=== PATIENT | male | born 1950 | race Caucasian/White ===

== ENCOUNTER 2023-08-28 12:14 | Inpatient (IN) | payer BC ==
[~2023-08-28] VITALS: Ht 180.3 cm; Wt 79.8 kg
[2023-08-28 13:18] VITALS: BP_SYST 145; PULSE 95; RESP 18; TEMP 98.3; O2SAT 98
[2023-08-28] MEDS: ONDANSETRON HCL 4 MG/2 ML VIAL IVP ONE (15:00)
[2023-08-28] MEDS: MORPHINE 2 MG/ML INJ. SYRINGE IVP ONE (15:02)
[2023-08-28 15:59] LABS: BASOPHILS # (AUTO) 0.1 K/uL (0.0-0.2); BASOPHILS % (AUTO) 0.6 % (0.0-2.0); EOSINOPHILS % (AUTO) 0.3 % (0.0-4.0); HEMATOCRIT 39.4 % (36-54); HEMOGLOBIN 13.8 g/dL (14.0-18.0); LYMPHOCYTES # (AUTO) 1.1 K/uL (1.0-5.5); LYMPHOCYTES % (AUTO) 9.3 % (20.5-51.5); MEAN CORPUSCULAR HEMOGLOBIN 31 pg (27-31); MEAN CORPUSCULAR HGB CONC 35 % (32-36); MEAN CORPUSCULAR VOLUME 87 fL (79.0-98.0); MONOCYTES # (AUTO) 0.8 K/uL (0.0-1.0); NEUTROPHILS # (AUTO) 9.5 K/uL (1.8-7.7); NEUTROPHILS % (AUTO) 82.8 % (40.0-70.0); PLATELET COUNT (AUTO) 155 K/uL (130-430); RED CELL DISTRIBUTION WIDTH 13.4 % (9.0-15.0); WHITE BLOOD COUNT (AUTO) 11.5 K/uL (4.8-10.8)
[2023-08-28 16:07] LABS: BILIRUBIN,URINE NEGATIVE (NEGATIVE); BLOOD, URINE 2+ (NEGATIVE); COLOR,URINE YELLOW (YELLOW); GLUCOSE,URINE NEGATIVE (NEGATIVE); KETONES,URINE NEGATIVE (NEGATIVE); LEUKOCYTE ESTERASE ,URINE NEGATIVE (NEGATIVE); NITRITE, URINE NEGATIVE (NEGATIVE); PH,URINE 5.5 (5.0-8.0); PROTEIN URINE NEGATIVE (NEGATIVE); UROBILINOGEN,URINE 0.2 (0.2-1.0)
[2023-08-28 16:08] LABS: CLARITY/URINE CLOUDY (CLEAR)
[2023-08-28 16:11] LABS: ANION GAP 11 (5-15); CALCIUM 8.2 mg/dL (8.4-11.0); CARBON DIOXIDE 26 mmol/L (23-29); CHLORIDE 104 mmol/L (98-107); CREATININE 3.71 mg/dL (0.55-1.30); GLUCOSE 148 mg/dL (74-106); SODIUM SERUM 141 mmol/L (136-145); UREA NITROGEN, BLOOD 36 mg/dL (8-21)
[2023-08-28 17:04] LABS: BACTERIA,URINE FEW /HPF (None Seen); WBC,URINE 0-3 /HPF (0-3)
[2023-08-28] MEDS ORDERED: ROSU10TA29 PO (17:44)
[2023-08-28] MEDS ORDERED: HYDROcodone/ACETAMIN 10-325 MG TAB PO PRN (17:45)
[2023-08-28] MEDS ORDERED: HYDROcodone/ACETAMIN 5-325 MG TAB (NORCO/ VICODIN) PO PRN (17:45)
[2023-08-28] MEDS ORDERED: ACETAMINOPHEN 325 MG TABLET PO PRN ×2 (17:45→18:00)
[2023-08-28] MEDS ORDERED: hydrALAZINE HCL 20 MG/ML VIAL IVP PRN (17:45)
[2023-08-28] MEDS ORDERED: ONDANSETRON HCL 4 MG/2 ML VIAL IVP PRN (17:45)
[2023-08-28] MEDS ORDERED: MORPHINE 2 MG/ML INJ. SYRINGE IVP PRN (17:45)
[2023-08-28] MEDS ORDERED: ALBUTEROL SULFATE 0.083% 2.5 MG/3 ML VIAL.NEB INH PRN (17:45)
[2023-08-28] MEDS ORDERED: TRAM50TA2 PO (17:46)
[2023-08-28] MEDS ORDERED: LOSA50TA28 PO (17:46)
[2023-08-28] MEDS ORDERED: CARV6.2554 PO (17:46)
[2023-08-28] MEDS ORDERED: METF-1069 PO (17:48)
[2023-08-28] MEDS: NACL 0.9% 1,000 ML IV ONE (19:41)
[2023-08-28 22:52] VITALS: BP_SYST 132; PULSE 71; RESP 18; TEMP 98
[2023-08-28 23:42] VITALS: BP_SYST 132; PULSE 71; O2SAT 98
[2023-08-29 06:42] LABS: BASOPHILS % (AUTO) 0.5 % (0.0-2.0); EOSINOPHILS # (AUTO) 0.4 K/uL (0.0-0.4); EOSINOPHILS % (AUTO) 4.3 % (0.0-4.0); HEMATOCRIT 36.2 % (36-54); HEMOGLOBIN 12.7 g/dL (14.0-18.0); LYMPHOCYTES # (AUTO) 2.2 K/uL (1.0-5.5); LYMPHOCYTES % (AUTO) 23.3 % (20.5-51.5); MEAN CORPUSCULAR HEMOGLOBIN 31 pg (27-31); MEAN CORPUSCULAR HGB CONC 35 % (32-36); MEAN CORPUSCULAR VOLUME 88 fL (79.0-98.0); MONOCYTES # (AUTO) 0.9 K/uL (0.0-1.0); MONOCYTES % (AUTO) 9.7 % (1.7-9.3); NEUTROPHILS # (AUTO) 5.7 K/uL (1.8-7.7); NEUTROPHILS % (AUTO) 62.2 % (40.0-70.0); PLATELET COUNT (AUTO) 156 K/uL (130-430); RED CELL DISTRIBUTION WIDTH 13.2 % (9.0-15.0); WHITE BLOOD COUNT (AUTO) 9.2 K/uL (4.8-10.8)
[2023-08-29 07:38] LABS: ALANINE AMINOTRANSFERASE 16 U/L (12-78); ALBUMIN 2.9 g/dL (3.4-4.8); ANION GAP 8 (5-15); ASPARTATE AMINOTRANSFERASE 15 U/L (10-37); CALCIUM 7.8 mg/dL (8.4-11.0); CARBON DIOXIDE 28 mmol/L (23-29); CHLORIDE 108 mmol/L (98-107); CREATININE 1.98 mg/dL (0.55-1.30); GLUCOSE 190 mg/dL (74-106); POTASSIUM 3.9 mmol/L (3.5-5.1); SODIUM SERUM 144 mmol/L (136-145); TOTAL BILIRUBIN 0.5 mg/dL (0.0-1.0); TOTAL PROTEIN, SERUM 6.6 g/dL (6.4-8.3); UREA NITROGEN, BLOOD 31 mg/dL (8-21)
[2023-08-29 08:07] VITALS: BP_SYST 166; PULSE 68; RESP 19; TEMP 97.7; O2SAT 97
[2023-08-29 08:50] VITALS: O2SAT 97
[2023-08-29] MEDS: TAMSULOSIN HCL 0.4 MG CAP PO SCH (09:41)
[2023-08-29] MEDS: CARVEDILOL 6.25 MG TABLET (COREG) PO ONE (10:32)
[2023-08-29] MEDS: LOSARTAN POTASSIUM 50 MG TABLET (COZAAR) PO ONE (10:33)
[2023-08-29 12:30] VITALS: BP_SYST 173; PULSE 66; RESP 17; TEMP 97; O2SAT 98
[2023-08-29 16:47] VITALS: BP_SYST 162; PULSE 78; RESP 17; TEMP 98; O2SAT 96
[2023-08-29] MEDS: amLODIPine BESYLATE 5 MG TABLET PO ONE (17:48)
[2023-08-29 20:00] VITALS: BP_SYST 152; PULSE 74; RESP 17; TEMP 98; O2SAT 98
[2023-08-29 22:00] VITALS: O2SAT 98
[2023-08-29] MEDS: ATORVASTATIN 20 MG TABLET PO SCH (22:00)
[2023-08-29] MEDS: CARVEDILOL 6.25 MG TABLET (COREG) PO SCH (22:17)
[2023-08-30] VITALS: BP_SYST 155; PULSE 79; RESP 17; TEMP 98.4; O2SAT 98
[2023-08-30] MEDS ORDERED: LOSARTAN POTASSIUM 50 MG TABLET (COZAAR) PO SCH (09:00)
[2023-08-30] MEDS: amLODIPine BESYLATE 5 MG TABLET PO ONE (10:44)
[2023-08-30 11:11] VITALS: BP_SYST 160; PULSE 65; RESP 15; TEMP 97.9; O2SAT 97
[2023-08-30 12:16] LABS: BASOPHILS % (AUTO) 0.4 % (0.0-2.0); EOSINOPHILS # (AUTO) 0.2 K/uL (0.0-0.4); EOSINOPHILS % (AUTO) 2.8 % (0.0-4.0); HEMATOCRIT 38.9 % (36-54); HEMOGLOBIN 13.7 g/dL (14.0-18.0); LYMPHOCYTES # (AUTO) 1.1 K/uL (1.0-5.5); LYMPHOCYTES % (AUTO) 15.2 % (20.5-51.5); MEAN CORPUSCULAR HEMOGLOBIN 31 pg (27-31); MEAN CORPUSCULAR HGB CONC 35 % (32-36); MEAN CORPUSCULAR VOLUME 88 fL (79.0-98.0); MONOCYTES # (AUTO) 0.3 K/uL (0.0-1.0); MONOCYTES % (AUTO) 4.9 % (1.7-9.3); NEUTROPHILS # (AUTO) 5.3 K/uL (1.8-7.7); NEUTROPHILS % (AUTO) 76.7 % (40.0-70.0); PLATELET COUNT (AUTO) 163 K/uL (130-430); RED BLOOD CELL COUNT(AUTO) 4.42 MIL/uL (4.2-6.2); WHITE BLOOD COUNT (AUTO) 6.9 K/uL (4.8-10.8)
[2023-08-30 12:23] LABS: ALANINE AMINOTRANSFERASE 17 U/L (12-78); ALBUMIN 3.2 g/dL (3.4-4.8); ANION GAP 11 (5-15); ASPARTATE AMINOTRANSFERASE 14 U/L (10-37); CALCIUM 8.7 mg/dL (8.4-11.0); CARBON DIOXIDE 28 mmol/L (23-29); CHLORIDE 106 mmol/L (98-107); CREATININE 1.15 mg/dL (0.55-1.30); GLUCOSE 191 mg/dL (74-106); POTASSIUM 3.9 mmol/L (3.5-5.1); SODIUM SERUM 145 mmol/L (136-145); TOTAL BILIRUBIN 0.8 mg/dL (0.0-1.0); TOTAL PROTEIN, SERUM 7.1 g/dL (6.4-8.3); UREA NITROGEN, BLOOD 13 mg/dL (8-21)
[2023-08-30 16:08] VITALS: BP_SYST 153; PULSE 68; RESP 15; TEMP 98; O2SAT 97
[2023-08-30 20:00] VITALS: BP_SYST 154; PULSE 70; RESP 16; TEMP 98; O2SAT 98
[2023-08-31 04:00] VITALS: BP_SYST 150; PULSE 76; RESP 20; TEMP 98; O2SAT 98
[2023-08-31] MEDS: amLODIPine BESYLATE 5 MG TABLET PO SCH (10:01)
[2023-08-31 10:34] VITALS: BP_SYST 150; PULSE 76; O2SAT 98
[2023-08-31 11:05] VITALS: BP_SYST 146; PULSE 75; RESP 14; TEMP 98.1; O2SAT 98
[2023-08-31] MEDS ORDERED: TAMS0.4C96 PO (13:12)
[2023-08-31 14:33] VITALS: BP_SYST 147; PULSE 89; RESP 18; TEMP 99.1; O2SAT 96
[2023-08-31 16:29] VITALS: O2SAT 98
== END 2023-08-31 15:20 | disposition home health service (06) | DRG 726 ==
LOC: SED 12:14 → SMU 18:15
PROVIDERS: ADMIT Family Medicine; ATTEND Family Medicine
DX: N40.1 Benign prostatic hyperplasia with lower urinary tract symptoms (principal); N17.9 Acute kidney failure, unspecified; E44.1 Mild protein-calorie malnutrition; I10 Essential (primary) hypertension; E78.5 Hyperlipidemia, unspecified; R33.8 Other retention of urine; E11.65 Type 2 diabetes mellitus with hyperglycemia; N28.1 Cyst of kidney, acquired; Z68.24 Body mass index [BMI] 24.0-24.9, adult
CPT/HCPCS: 36415; 76700; 80048; 80053; 81000; 81001; 81015; 83037; 85025; 94070; 94760; 96361; 96374; 96375; 97116-GP; 97530-GP; 99285; J2270; J2405

== ENCOUNTER 2023-12-25 05:55 | Emergency (ER) | payer BC ==
[~2023-12-25] VITALS: Ht 180.3 cm; Wt 86.2 kg
[~2023-12-25 05:55] MED LIST: CARV6.2554 PO; LOSA50TA28 PO; METF-1069 PO; ROSU10TA72 PO; TAMS0.4C96 PO; TRAM50TA2 PO
[2023-12-25 05:58] VITALS: BP_SYST 190; PULSE 93; RESP 20; TEMP 98.1; O2SAT 97
[2023-12-25 06:30] VITALS: BP_SYST 170; PULSE 90; RESP 18; TEMP 98.1; O2SAT 97
== END 2023-12-25 06:30 | disposition home or self-care (01) ==
LOC: SED 05:55
DX: R33.8 Other retention of urine (principal); I10 Essential (primary) hypertension; Z79.899 Other long term (current) drug therapy; Z79.2 Long term (current) use of antibiotics
CPT/HCPCS: 99284